=== PATIENT | female | born 1975 | race Caucasian/White ===

== ENCOUNTER 2017-10-13 10:01 | Outpatient (CLI) | payer OTHER | END 2017-10-13 10:10 | disposition home or self-care (01) | LOC: SONOGRAMA 10:01 | DX: E04.1 Nontoxic single thyroid nodule (principal) ==

== ENCOUNTER 2018-06-14 11:58 | Outpatient (CLI) | payer OTHER | END 2018-06-14 12:14 | disposition home or self-care (01) | LOC: RAD 11:58 | DX: M54.2 Cervicalgia (principal) ==

== ENCOUNTER 2019-12-26 08:36 | Day surgery (SDC) | payer OTHER | END 2019-12-26 14:15 | disposition home or self-care (01) | LOC: AMB-ENDOS 08:36 | PROVIDERS: ATTEND Surgery | DX: K62.89 Other specified diseases of anus and rectum (principal); K64.0 First degree hemorrhoids ==

== ENCOUNTER 2020-02-01 14:32 | Outpatient (CLI) | payer OTHER | END 2020-02-01 14:58 | disposition home or self-care (01) | LOC: SONOGRAMA 14:32 → MAMO-SONO 14:45 → SONOGRAMA 14:58 | PROVIDERS: ATTEND Specialist | DX: R10.2 Pelvic and perineal pain (principal); N83.202 Unspecified ovarian cyst, left side ==

== ENCOUNTER 2020-02-29 06:15 | Day surgery (SDC) | payer OTHER ==
[~2020-02-29 06:15] MED LIST: A/F PAIN RELIE500 MG PO; ALL DAY ALLERGY10 M3 PO; BIOTIN1 MG PO; SINGULAIR10 MG PO; VITAMIN C500 M6 PO
[2020-02-29] MEDS ORDERED: PERCOCET 5-3251 EACH PO (13:11)
[2020-02-29] MEDS ORDERED: NEURONTIN600 M1 PO (13:12)
[2020-02-29] MEDS ORDERED: COLACE100 MG PO (13:12)
== END 2020-02-29 16:00 | disposition home or self-care (01) ==
LOC: CIR.AMB 06:15
PROVIDERS: ATTEND Surgery
DX: K40.90 Unilateral inguinal hernia, without obstruction or gangrene, not specified as recurrent (principal); Z20.828 Contact with and (suspected) exposure to other viral communicable diseases

== ENCOUNTER 2020-12-07 07:10 | Day surgery (SDC) | payer OTHER ==
[~2020-12-07 07:10] MED LIST changes: +COLACE100 MG PO; +NEURONTIN600 M1 PO; +PERCOCET 5-3251 EACH PO
[2020-12-07] MEDS ORDERED: PERCOCET 5-3251 EACH PO (09:30)
[2020-12-07] MEDS ORDERED: COLACE100 MG PO (09:30)
[2020-12-07] MEDS ORDERED: NEURONTIN300 MG PO (10:11)
== END 2020-12-07 15:00 | disposition home or self-care (01) ==
LOC: CIR.AMB 07:10
PROVIDERS: ATTEND Surgery
DX: K64.8 Other hemorrhoids (principal); Z20.822 Contact with and (suspected) exposure to COVID-19

== ENCOUNTER 2020-12-12 19:45 | Emergency (ER) | payer OTHER ==
[~2020-12-12] VITALS: Ht 154.9 cm; Wt 60.8 kg
[~2020-12-12 19:45] MED LIST changes: +NEURONTIN300 MG PO
[2020-12-12] MEDS ORDERED: FLAGYL500MG PO (22:35)
[2020-12-12] MEDS ORDERED: DICLOFENAC POTA50 MG PO (22:35)
[2020-12-12] MEDS ORDERED: NEURONTIN300 MG PO (22:35)
== END 2020-12-12 22:51 | disposition home or self-care (01) ==
LOC: ER 19:45
DX: K62.89 Other specified diseases of anus and rectum (principal)

== ENCOUNTER 2024-01-05 12:00 | Outpatient (CLI) | payer OTHER ==
[~2024-01-05 12:00] MED LIST changes: +DICLOFENAC POTA50 MG PO; +FLAGYL500MG PO
== END 2024-01-05 12:08 | disposition home or self-care (01) ==
LOC: RAD 12:00
PROVIDERS: ATTEND Specialist
DX: Z01.818 Encounter for other preprocedural examination (principal)

== ENCOUNTER 2024-01-22 06:33 | Day surgery (SDC) | payer OTHER ==
[2024-01-22] MEDS ORDERED: CEFAZOLIN SODIUM 1,000 MG VIAL ONE (08:27)
[2024-01-22] MEDS ORDERED: POVIDONE-IODINE 118 ML BOTT TOP ONE (08:31)
[2024-01-22] MEDS ORDERED: OXYTOCIN 10 UNITS/ML VIAL ONE (08:32)
== END 2024-01-22 14:10 | disposition home or self-care (01) ==
LOC: CIR.AMB 06:33
PROVIDERS: ATTEND Specialist
DX: N84.0 Polyp of corpus uteri (principal); J45.909 Unspecified asthma, uncomplicated